=== PATIENT | male | born 1950 | race Hispanic/Latino ===

== ENCOUNTER → 2019-12-13 | Outpatient (CLI) | payer OTHER ==
--- NOTE | 2019-12-13 14:15 | Diagnostic Imaging Report ---
Exam: Radiographs of the left shoulder. Radiographs of the left RIBS with chest x-ray History: Left rib and left shoulder pain. Trauma Findings: Scattered degenerative change. No osseous erosion. No fracture or dislocation. No rib abnormality. No consolidated pneumonia, pleural effusion or pneumothorax. Impression: No rib abnormality. No consolidated pneumonia, pleural effusion or pneumothorax. Signed by: Dr. Hemant Cardoza M.D. on 12/13/2019 2:12 PM
== END ==
LOC: RAD 12:30
PROVIDERS: ATTEND Family Medicine
DX: M25.512 Pain in left shoulder (principal); R07.81 Pleurodynia; R07.89 Other chest pain
CPT/HCPCS: 71101